=== PATIENT | female | born 1980 ===

== ENCOUNTER 2017-08-14 19:11 | Emergency (ER) | payer SELFPAY ==
--- NOTE | 2017-08-14 20:07 | ED PDOC ---
HPI: General Adult Time Seen by Provider: 08/14/17 19:32 Chief Complaint (Nursing): Back Pain Chief Complaint (Provider): Neck Pain History Per: Patient, [employer] (1919) History/Exam Limitations: no limitations Onset/Duration Of Symptoms: Days Current Symptoms Are (Timing): Still Present Additional Complaint(s): 37 year old female presents to the ED for an evaluation of neck pain. Reports she fell while playing with [place] the park. She states the pain radiates from her neck to her left arm and back. Denies taking any medication for pain. PMD: No Family Provider Past Medical History Reviewed: Historical Data, Nursing Documentation, Vital Signs Vital Signs: Last Vital Signs Temp 98 F 08/14/17 20:30 Pulse 76 08/14/17 20:30 Resp 18 08/14/17 20:30 BP 122/78 08/14/17 20:30 Pulse Ox 99 08/14/17 20:30 - Medical History PMH: No Chronic Diseases - Family History Family History: States: Unknown Family Hx - Home Medications Home Medications: Ambulatory Orders Medication Instructions Recorded Nitrofurantoin Macrocrystals 100 mg PO BID #14 cap 04/02/14 [Macrobid] Vitamins6 [ 1 tab PO DAILY #30 tab 04/02/14 Vitamins] Ondansetron ODT [Zofran ODT] 2 mg PO Q6 PRN #5 odt 06/14/14 Cyclobenzaprine [Flexeril] 10 mg PO TID #27 tab 08/14/17 - Allergies Allergies/Adverse Reactions: Allergies Allergy/AdvReac Type Severity Reaction Status Date / Time No Known Allergies Allergy Verified 06/14/14 16:28 Review of Systems ROS Statement: Except As Marked, All Systems Reviewed And Found Negative Musculoskeletal: Positive for: Neck Pain, Back Pain, Hand Pain Physical Exam - Reviewed Nursing Documentation Reviewed: Yes Vital Signs Reviewed: Yes - Physical Exam Appears: Positive for: Well, Non-toxic, No Acute Distress Head Exam: Positive for: ATRAUMATIC, NORMAL INSPECTION, NORMOCEPHALIC Skin: Positive for: Normal Color, Warm, Dry Neck: Positive for: Normal, Painless ROM, Supple. Negative for: Decreased ROM Cardiovascular/Chest: Positive for: Regular Rate, Rhythm. Negative for: Murmur Respiratory: Positive for: Normal Breath Sounds. Negative for: Decreased Breath Sounds, Accessory Muscle Use, Respiratory Distress Neurologic/Psych: Positive for: Alert, Oriented (x3). Negative for: Motor/ Sensory Deficits - ECG O2 Sat by Pulse Oximetry: 100 (RA) Pulse Ox Interpretation: Normal Medical Decision Making Medical Decision Making: Time: 1951 Initial impression: whiplash injury Initial plan: --Flexeril 10mg --Tylenol 650mg Scribe Attestation: Documented by Jeffrey Tirado, acting as a scribe for Floyd Cota PA-C. Provider Scribe Attestation: All medical record entries made by the Scribe were at my direction and personally dictated by me. I have reviewed the chart and agree that the record accurately reflects my personal performance of the history, physical exam, medical decision making, and the department course for this patient. I have also personally directed, reviewed, and agree with the discharge instructions and disposition. Disposition - Clinical Impression Clinical Impression: Whiplash - Patient ED Disposition Is Patient to be Admitted: No Doctor Will See Patient In The: Office Counseled Patient/Family Regarding: Diagnosis, Need For Followup, Rx Given - Disposition Referrals: [facility] [Outside] Disposition: Routine/Home Disposition Time: 20:12 Condition: STABLE Prescriptions: Cyclobenzaprine [Flexeril] 10 mg PO TID #27 tab Instructions: Whiplash, Whiplash (DC), Cervical Muscle Strain Forms: [employer] (Mohawk), [employer] (Thai) Print Language: MALTESE
[2017-08-14 20:54] VITALS: BP 122/78; PULSE 76; RESP 18; TEMP 98
[2017-08-14 21:37] VITALS: O2SAT 100
== END 2017-08-14 20:30 | disposition home or self-care (01) ==
LOC: H.ER 19:11
DX: S13.4XXA Sprain of ligaments of cervical spine, initial encounter (principal); W18.30XA Fall on same level, unspecified, initial encounter; Y93.83 Activity, rough housing and horseplay

== ENCOUNTER 2018-03-13 09:11 | Emergency (ER) | payer SELFPAY ==
[2018-03-13 09:15] VITALS: BP 114/80; RESP 18; TEMP 98.8; O2SAT 98
--- NOTE | 2018-03-13 11:00 | ED PDOC ---
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 States a lot of force was placed on knee but did not directly strike it against object/floor. Has had ongoing pain despite intermittent use of advil/tylenol for pain. Unable to get appt with clinic.) Past Medical History Reviewed: Historical Data, Nursing Documentation, Vital Signs Vital Signs: Last Vital Signs Temp 98.8 F 03/13/18 09:15 Pulse 96 H 03/13/18 09:15 Resp 18 03/13/18 09:15 BP 114/80 03/13/18 09:15 Pulse Ox 98 03/13/18 09:15 - Medical History PMH: Diabetes - Family History Family History: States: Unknown Family Hx - Home Medications Home Medications: Ambulatory Orders Medication Instructions Recorded Nitrofurantoin Macrocrystals 100 mg PO BID #14 cap 04/02/14 [Macrobid] Vitamins6 [ 1 tab PO DAILY #30 tab 04/02/14 Vitamins] Ondansetron ODT [Zofran ODT] 2 mg PO Q6 PRN #5 odt 06/14/14 Cyclobenzaprine [Flexeril] 10 mg PO TID #27 tab 08/14/17 Naproxen 375 mg PO Q8 PRN #21 tablet 03/13/18 - Allergies Allergies/Adverse Reactions: Allergies Allergy/AdvReac Type Severity Reaction Status Date / Time No Known Allergies Allergy Verified 03/13/18 09:29 Review of Systems ROS Statement: Except As Marked, All Systems Reviewed And Found Negative Musculoskeletal: Positive for: Other (knee pain) Physical Exam - Reviewed Nursing Documentation Reviewed: Yes Vital Signs Reviewed: Yes - Physical Exam Appears: Positive for: Well, Non-toxic, No Acute Distress Head Exam: Positive for: ATRAUMATIC, NORMAL INSPECTION, NORMOCEPHALIC Skin: Positive for: Normal Color, Warm, DRY Eye Exam: Positive for: EOMI, Normal appearance, PERRL ENT: Positive for: Normal ENT Inspection Neck: Positive for: Normal, Painless ROM Cardiovascular/Chest: Positive for: Regular Rate, Rhythm Respiratory: Positive for: CNT, Normal Breath Sounds Gastrointestinal/Abdominal: Positive for: Normal Exam, Soft Back: Positive for: Normal Inspection Extremity: Positive for: Normal ROM, Other (mild effusion noted right knee.) Neurologic/Psych: Positive for: Alert, Oriented - Laboratory Results Urine POC: Negative - ECG O2 Sat by Pulse Oximetry: 98 - Progress ED Course And Treament: TORADOL 30 MG IM X 1 DOSE xry of knee: ?avulsion chip old. will recommend outpatient MRI Placed in knee immobilizer. Disposition - Clinical Impression Clinical Impression: Strain of knee and leg, right - Patient ED Disposition Is Patient to be Admitted: No - Disposition Referrals: [facility] [Outside] Disposition: Routine/Home Disposition Time: 11:01 Condition: FAIR Prescriptions: Naproxen 375 mg PO Q8 PRN #21 tablet PRN Reason: Pain, Moderate (4-7) Instructions: Knee Sprain (DC) Forms: [facility] ED School/Work Excuse Print Language: NAMIBIAN
[2018-03-13 12:41] VITALS: PULSE 88
--- NOTE | 2018-03-13 12:57 | RAD ---
Date of service: 03/13/2018 PROCEDURE: Right Knee Radiographs. HISTORY: knee injury COMPARISON: None. FINDINGS: BONES: Normal. No fracture. JOINTS: Normal. No osteoarthritis. JOINT EFFUSION: None. OTHER FINDINGS: None. IMPRESSION: Normal radiographs of the right knee.
== END 2018-03-13 12:09 | disposition home or self-care (01) ==
LOC: H.ER 09:11
DX: S83.91XA Sprain of unspecified site of right knee, initial encounter (principal); X50.9XXA Other and unspecified overexertion or strenuous movements or postures, initial encounter; Y92.89 Other specified places as the place of occurrence of the external cause; E11.9 Type 2 diabetes mellitus without complications
CPT/HCPCS: 29530; 73562; 81025; 96372; 99284; J1885